=== PATIENT | female | born 1995 | race Caucasian/White ===

== ENCOUNTER → 2017-08-26 | Outpatient (CLI) | payer OTHER ==
[2017-08-26 18:06] LABS: BASO # 0.1 10^3/uL (0.0-0.2); BASO % 0.4 % (0.0-1.0); EOS # 0.1 10^3/uL (0.0-0.50); EOS % 0.7 % (0.0-3.0); HEMOGLOBIN 15.2 g/dl (12.0-16.0); IMMATURE GRANULOCYTE % 0.3 % (0-3.0); LYMPH # 1.9 10^3/uL (1.5-6.5); LYMPH % 15.9 % (24.0-44.0); MEAN CORPUSCULAR HEMOGLOBIN 29.5 pg (27.0-33.0); MEAN CORPUSCULAR VOLUME 89.3 fl (80.0-96.0); MONO # 0.7 10^3/uL (0.0-0.8); MONO % 5.8 % (0.0-5.0); NEUTROPHILS # 9.4 10^3/uL (1.8-7.7); NEUTROPHILS % 76.9 % (36.0-66.0); PLATELET COUNT, AUTOMATED 345 10^3/uL (150-450); RED BLOOD COUNT 5.15 10^6/uL (4.00-5.40); RED CELL DISTRIBUTION WIDTH 11.8 % (11.5-14.5); WHITE BLOOD COUNT 12.2 10^3/uL (4.0-10.0)
[2017-08-26 18:14] LABS: ALBUMIN 3.9 GM/DL (3.2-5.2); ALBUMIN/GLOBULIN RATIO 1.15 (1.00-1.93); ALKALINE PHOSPHATASE 69 U/L (45-117); ALT/SGPT 24 U/L (12-78); ANION GAP 8 MEQ/L (8-16); AST/SGOT 10 U/L (7-37); BILIRUBIN,TOTAL 0.5 MG/DL (0.2-1.0); BLOOD UREA NITROGEN 14 MG/DL (7-18); CALCIUM LEVEL 9.1 MG/DL (8.5-10.1); CARBON DIOXIDE LEVEL 26 MEQ/L (21-32); CHLORIDE LEVEL 105 MEQ/L (98-107); CREATININE FOR GFR 0.74 MG/DL (0.55-1.30); GLUCOSE, FASTING 87 MG/DL (70-100); POTASSIUM SERUM 4.4 MEQ/L (3.5-5.1); SODIUM LEVEL 139 MEQ/L (136-145); TOTAL PROTEIN 7.3 GM/DL (6.4-8.2)
[2017-08-29 00:06] LABS: EBV AB TO NUCLEAR ANTIGEN <18.0 U/mL (0.0-17.9); EBV VIRAL CAPSID AG IgG <18.0 U/mL (0.0-17.9)
[2017-08-29 00:06] LABS: EBV VIRAL CAPSID AG IgM <36.0 U/mL (0.0-35.9)
== END ==
LOC: M WUC 12:40
DX: J03.90 Acute tonsillitis, unspecified (principal)

== ENCOUNTER → 2018-03-16 | Outpatient (REF) | payer OTHER | LOC: M LAB REF 09:57 | DX: J03.90 Acute tonsillitis, unspecified (principal) | CPT/HCPCS: 87081 ==

== ENCOUNTER → 2022-07-10 | Outpatient (REF) | payer OTHER ==
[~2022-07-10] MED LIST: ASPI325T OR; KEFL500C OR; No Historical Meds; PERC5TAB8 OR
[2022-07-10 17:48] LABS: HEMOGLOBIN A1c 5.3 % (4.0-6.0)
[2022-07-10 18:00] LABS: ALBUMIN 3.7 G/DL (3.2-5.2); ALKALINE PHOSPHATASE 71 U/L (46-116); ALT/SGPT 28 U/L (7.0-40); AST/SGOT 22 U/L (<34); BILIRUBIN,TOTAL 0.4 MG/DL (0.3-1.2); BLOOD UREA NITROGEN 12 MG/DL (9-23); CALCIUM LEVEL 9.4 MG/DL (8.5-10.1); CARBON DIOXIDE LEVEL 27 MMOL/L (20-31); CHLORIDE LEVEL 103 MMOL/L (98-107); CHOLESTEROL LEVEL 171 MG/DL (<200); CHOLESTEROL RISK RATIO 4.76 (<5); CREATININE FOR GFR 0.71 MG/DL (0.55-1.30); GLOMERULAR FILTRATION RATE > 60.0 (>60); GLUCOSE, FASTING 88 MG/DL (60-100); HDL CHOLESTEROL 35.9 MG/DL (>40); LDL CHOLESTEROL 118.9 MG/DL (<100); NON-HDL-C 135 MG/DL; POTASSIUM SERUM 5.1 MMOL/L (3.5-5.1); SODIUM LEVEL 139 MMOL/L (136-145); TOTAL PROTEIN 6.8 G/DL (5.7-8.2); TRIGLYCERIDES LEVEL 81 MG/DL (<150)
[2022-07-10 18:08] LABS: THYROID STIMULATING HORMONE 1.726 uIU/ML (0.55-4.78)
[2022-07-10 18:10] LABS: TOTAL 25(OH) VITAMIN D 18.8 NG/ML (20.0-100.0)
== END ==
LOC: M LAB REF 16:34
PROVIDERS: ATTEND Nurse Practitioner Family
DX: Z13.228 Encounter for screening for other metabolic disorders (principal); E66.01 Morbid (severe) obesity due to excess calories

== ENCOUNTER → 2023-09-12 | Outpatient (CLI) | payer OTHER | LOC: M PLALAB 08:51 | PROVIDERS: ATTEND Advanced Practice Midwife | DX: Z34.80 Encounter for supervision of other normal pregnancy, unspecified trimester (principal); Z3A.00 Weeks of gestation of pregnancy not specified; Z53.9 Procedure and treatment not carried out, unspecified reason ==

== ENCOUNTER → 2023-09-12 | Outpatient (CLI) | payer OTHER ==
[2023-09-12 14:03] LABS: HEMATOCRIT 37.3 % (36.0-47.0); HEMOGLOBIN 12.5 g/dl (12.0-15.5); MEAN CORPUSCULAR HEMOGLOBIN 29.1 pg (27.0-33.0); MEAN CORPUSCULAR HGB CONC 33.5 g/dl (32.0-36.5); MEAN CORPUSCULAR VOLUME 86.9 fl (80.0-96.0); PLATELET COUNT, AUTOMATED 299 10^3/uL (150-450); RED BLOOD COUNT 4.29 10^6/uL (4.00-5.40)
[2023-09-12 14:37] LABS: HIV 1&2 SCREEN NEGATIVE (NEGATIVE)
[2023-09-12 14:44] LABS: HEPATITIS C VIRUS ABY INDEX 0.02 INDEX (<0.8)
[2023-09-12 15:28] LABS: GC DNA AMPLIFICATION NEGATIVE (NEGATIVE)
== END ==
LOC: M PLALAB 08:49
PROVIDERS: ATTEND Specialist
DX: Z34.82 Encounter for supervision of other normal pregnancy, second trimester (principal); Z3A.00 Weeks of gestation of pregnancy not specified

== ENCOUNTER → 2023-09-12 | Outpatient (CLI) | payer OTHER ==
[2023-09-12 14:08] LABS: BLOOD UREA NITROGEN 8 MG/DL (9-23); CALCIUM LEVEL 8.4 MG/DL (8.5-10.1); CARBON DIOXIDE LEVEL 23 MMOL/L (20-31); CHLORIDE LEVEL 105 MMOL/L (98-107); CREATININE FOR GFR 0.55 MG/DL (0.55-1.30); GLOMERULAR FILTRATION RATE > 60.0 (>60); GLUCOSE, FASTING 77 MG/DL (60-100); SODIUM LEVEL 136 MMOL/L (136-145)
[2023-09-12 14:10] LABS: THYROID STIMULATING HORMONE 1.574 uIU/ML (0.55-4.78); TOTAL 25(OH) VITAMIN D 80.5 NG/ML (20.0-100.0)
[2023-09-12 14:22] LABS: HEMOGLOBIN A1c 5.3 % (4.0-6.0)
[2023-09-12 14:41] LABS: HIV 1&2 SCREEN NEGATIVE (NEGATIVE)
[2023-09-12 14:49] LABS: HEPATITIS C VIRUS ABY INDEX 0.02 INDEX (<0.8)
== END ==
LOC: M PLALAB 08:54
PROVIDERS: ATTEND Nurse Practitioner Family
DX: Z11.9 Encounter for screening for infectious and parasitic diseases, unspecified (principal); E55.9 Vitamin D deficiency, unspecified; E88.810 Metabolic syndrome; E66.01 Morbid (severe) obesity due to excess calories

== ENCOUNTER → 2023-10-18 | Outpatient (CLI) | payer OTHER | LOC: M RAD 07:15 | PROVIDERS: ATTEND Advanced Practice Midwife | DX: Z34.02 Encounter for supervision of normal first pregnancy, second trimester (principal) ==

== ENCOUNTER → 2023-12-07 | Outpatient (CLI) | payer OTHER | LOC: M WHC 07:22 | PROVIDERS: ATTEND Advanced Practice Midwife | DX: Z34.02 Encounter for supervision of normal first pregnancy, second trimester (principal) ==

== ENCOUNTER → 2023-12-13 | Outpatient (CLI) | payer OTHER ==
[2023-12-13 10:59] LABS: HEMATOCRIT 34.9 % (36.0-47.0); HEMOGLOBIN 11.2 g/dl (12.0-15.5); MEAN CORPUSCULAR HEMOGLOBIN 28.7 pg (27.0-33.0); MEAN CORPUSCULAR HGB CONC 32.1 g/dl (32.0-36.5); MEAN CORPUSCULAR VOLUME 89.5 fl (80.0-96.0); PLATELET COUNT, AUTOMATED 316 10^3/uL (150-450); WHITE BLOOD COUNT 10.9 10^3/uL (4.0-10.0)
== END ==
LOC: M PLALAB 07:58
PROVIDERS: ATTEND Advanced Practice Midwife
DX: Z34.02 Encounter for supervision of normal first pregnancy, second trimester (principal); Z3A.00 Weeks of gestation of pregnancy not specified

== ENCOUNTER → 2023-12-18 | Outpatient (CLI) | payer OTHER | LOC: M LAB 06:48 | PROVIDERS: ATTEND Obstetrics & Gynecology | DX: O99.212 Obesity complicating pregnancy, second trimester (principal); Z23 Encounter for immunization; Z3A.00 Weeks of gestation of pregnancy not specified ==

== ENCOUNTER → 2023-12-26 | Outpatient (CLI) | payer OTHER | LOC: M RAD 07:02 | PROVIDERS: ATTEND Obstetrics & Gynecology | DX: Z34.83 Encounter for supervision of other normal pregnancy, third trimester (principal); Z23 Encounter for immunization; Z3A.29 29 weeks gestation of pregnancy ==

== ENCOUNTER → 2024-02-05 | Outpatient (REF) | payer OTHER | LOC: M PLALAB 08:15 | PROVIDERS: ATTEND Obstetrics & Gynecology | DX: Z36.89 Encounter for other specified antenatal screening (principal); Z3A.36 36 weeks gestation of pregnancy ==

== ENCOUNTER → 2024-02-07 | Outpatient (CLI) | payer OTHER | LOC: M WHC 06:59 | PROVIDERS: ATTEND Obstetrics & Gynecology | DX: O99.213 Obesity complicating pregnancy, third trimester (principal); Z3A.35 35 weeks gestation of pregnancy ==

== ENCOUNTER 2024-03-04 08:37 | Inpatient (IN) | payer OTHER ==
[~2024-03-04] VITALS: Ht 177.8 cm; Wt 164.0 kg
[2024-03-04] VITALS (39 sets, daily range): BP systolic 98–148; BP diastolic 35–94; O2SAT 100
[2024-03-04] MEDS ORDERED: PRENTAB9 PO (09:32)
[2024-03-04] MEDS ORDERED: METF500T13 PO (09:32)
[2024-03-04] MEDS ORDERED: HOME MED LIST COMPLETE! XX SCH (09:35)
[2024-03-04] MEDS ORDERED: LIDOCAINE 1% MDV 20ML VIAL INFIL PRN (09:45)
[2024-03-04] MEDS ORDERED: CARBOPROST TROMETHAMINE 250 MCG/ML AMP IM PRN (09:45)
[2024-03-04] MEDS ORDERED: TRANEXAMIC ACID INJection 1,000 MG in NS 100 ML IV PRN (09:45)
[2024-03-04 10:41] LABS: HEMOGLOBIN 12.3 g/dl (12.0-15.5); MEAN CORPUSCULAR HEMOGLOBIN 28.7 pg (27.0-33.0); MEAN CORPUSCULAR HGB CONC 33.2 g/dl (32.0-36.5); MEAN CORPUSCULAR VOLUME 86.4 fl (80.0-96.0); PLATELET COUNT, AUTOMATED 316 10^3/uL (150-450); RED BLOOD COUNT 4.28 10^6/uL (4.00-5.40); WHITE BLOOD COUNT 12.7 10^3/uL (4.0-10.0)
[2024-03-04 10:53] LABS: TOTAL PROTEIN,RANDOM URINE 22.1 MG/DL (0.0-14.0)
[2024-03-04 11:00] LABS: LDH LACTATE DEHYDROGENASE 153 U/L (120-246)
[2024-03-04 11:01] LABS: ALT/SGPT 17 U/L (7.0-40); AST/SGOT 10 U/L (<34); BILIRUBIN,TOTAL 0.3 MG/DL (0.3-1.2); CREATININE FOR GFR 0.61 MG/DL (0.55-1.30); GLOMERULAR FILTRATION RATE > 60.0 (>60)
[2024-03-04 11:15] LABS: URIC ACID 6.2 MG/DL (3.1-7.8)
[2024-03-04] MEDS: miSOPROStol 50MCG 1/2 TABLET PO SCH (11:34)
[2024-03-04] MEDS: LACTATED RINGER'S 1000 ML IV STA (17:48)
[2024-03-04] MEDS: metFORMIN (GLUCOPHAGE) 500MG TAB PO SCH (18:15)
[2024-03-04] MEDS ORDERED: ePHEDrine SULFATE 25 MG/5 ML(5MG/ML) SYRINGE As Ordered ONE (19:17)
[2024-03-04] MEDS ORDERED: diphenhydrAMINE 50MG/ML VIAL IV PRN (19:30)
[2024-03-04] MEDS ORDERED: EPIDURAL/PCA KEYS XX PRN (19:30)
[2024-03-04] MEDS ORDERED: NALOXONE INJ 0.4MG/1ML VIAL IV PRN (19:30)
[2024-03-04] MEDS ORDERED: ROPIVACAINE HCL IVBAG 200 ML EPIDURAL SCH (19:30)
[2024-03-04] MEDS: ONDANSETRON 4MG 2ML VIAL IV PRN (19:37)
[2024-03-04] MEDS: ePHEDrine SULFATE 25 MG/5 ML(5MG/ML) SYRINGE IVP PRN (19:38)
[2024-03-04] MEDS: FENTANYL/ROPIVACAINE/NACL BAG 100 ML EPIDURAL SCH (19:44)
[2024-03-05] VITALS (31 sets, daily range): BP systolic 86–132; BP diastolic 44–80; O2SAT 96–98
[2024-03-05] MEDS: LR 500 ML IV PRN (00:41)
[2024-03-05] MEDS: OXYTOCIN DRIP 30 UNITS in IV 1 EA IV SCH ×2 (01:05→14:15)
[2024-03-05] MEDS: OXYTOCIN DRIP 30 UNITS in IV 1 EA IV PRN (10:30)
[2024-03-05] MEDS ORDERED: OXYTOCIN 30UNITS IN 0.9% NaCl 500ML IV BAG As Ordered ONE (10:56)
[2024-03-05] MEDS ORDERED: METHYLERGONOVINE MALEATE 0.2 MG TAB PO PRN (11:00)
[2024-03-05] MEDS ORDERED: IBUPROFEN 600MG TAB PO PRN (11:00)
[2024-03-05] MEDS ORDERED: RHO(D) IMMUNE GLOBULIN/MALTOSE 500MCG(2500IU)/2.2ML VIAL (WINRHO) IM SCH (11:00)
[2024-03-05] MEDS ORDERED: ACETAMINOPHEN TAB 650MG DOSE (2X325MG) PO PRN (11:00)
[2024-03-05 11:46] LABS: HEPATITIS C VIRUS ABY INDEX < 0.02 INDEX (<0.8)
[2024-03-05] MEDS: IBUPROFEN 800 MG TAB PO PRN (13:33)
[2024-03-05] MEDS: PRENATAL VITAMINS CHEWABLE TABLET PO SCH (14:15)
[2024-03-05] MEDS: ACETAMINOPHEN 500 MG TAB PO PRN (17:59)
[2024-03-06 01:56] VITALS: BP 100/56; O2SAT 100
[2024-03-06 05:56] VITALS: BP 107/54; O2SAT 100
[2024-03-06 10:00] VITALS: BP 126/70; O2SAT 98
[2024-03-06] MEDS: DIBUCAINE 1% OINTMENT 30GM TOP PRN (13:18)
[2024-03-06] MEDS: DOCUSATE SODIUM 100MG CAPSULE PO PRN (13:18)
[2024-03-06 14:00] VITALS: BP 128/67; O2SAT 97
[2024-03-06 18:00] VITALS: BP 129/69; O2SAT 98
[2024-03-06 22:00] VITALS: BP 108/52; O2SAT 100
[2024-03-07 01:53] VITALS: BP 130/69; O2SAT 97
[2024-03-07 05:51] VITALS: BP 129/71; O2SAT 97
[2024-03-07] MEDS: MEASLES,MUMPS,RUBELLA VACCINE INJ (MMR-II) SC.IMMUN ONE (07:12)
[2024-03-07] MEDS: ANUSOL HC CREAM 30GM TOP PRN (16:20)
[2024-03-07 18:00] VITALS: BP 113/58; O2SAT 98
[2024-03-08 05:42] VITALS: BP 125/80; O2SAT 98
== END 2024-03-08 14:51 | disposition home or self-care (01) | DRG 807 ==
LOC: M LDO 08:37 → M LDI 08:50 → M OBS 03-05 14:00
PROVIDERS: ADMIT Obstetrics & Gynecology; ATTEND Advanced Practice Midwife
PROC: 3E0P7GC Introduction of Other Therapeutic Substance into Female Reproductive, Via Natural or Artificial Opening (ICD-10-PCS; 2024-03-04)
PROC: 10907ZC Drainage of Amniotic Fluid, Therapeutic from Products of Conception, Via Natural or Artificial Opening (ICD-10-PCS; 2024-03-04)
PROC: 10E0XZZ Delivery of Products of Conception, External Approach (ICD-10-PCS; principal; 2024-03-05)
PROC: 0KQM0ZZ Repair Perineum Muscle, Open Approach (ICD-10-PCS; 2024-03-05)
DX: O42.02 Full-term premature rupture of membranes, onset of labor within 24 hours of rupture (principal); Z37.0 Single live birth; Z3A.39 39 weeks gestation of pregnancy; O69.81X0 Labor and delivery complicated by cord around neck, without compression, not applicable or unspecified; O70.1 Second degree perineal laceration during delivery

== ENCOUNTER → 2024-09-23 | Outpatient (REF) | payer OTHER ==
[~2024-09-23] MED LIST changes: +METF500T13 PO; +PRENTAB9 PO
== END ==
LOC: M LAB REF 11:56
PROVIDERS: ATTEND Physician Assistant
DX: J06.9 Acute upper respiratory infection, unspecified (principal)